=== PATIENT | female | born 1990 | race Two or more races ===

== ENCOUNTER 2016-09-23 08:10 | Inpatient (IN) | payer MEDICAID ==
[~2016-09-23] VITALS: Ht 167.6 cm; Wt 75.0 kg
[2016-09-23 08:21] VITALS: Ht 167.6 cm; Wt 75.0 kg
[2016-09-23 08:23] VITALS: RESP 19
--- NOTE | 2016-09-23 08:32 | TRIAGE ---
OB Triage Datetime Report Generated by CPN: 09/23/2016 08:31 Datetime: 09/23/2016 08:28 Maternal Assessment Level of Consciousness: Fully Conscious DTR's/Clonus: DTRs 1+ Headache: Denies Blurred Vision: No Breath Sounds, Left: Clear and Equal Breath Sounds, Right: Clear and Equal Nausea/Vomiting: Denies RUQ Epigastric Pain: Denies Facial Edema: None Labor Evaluation Frequency: 4 Monitor Mode: External Duration (sec)2399: 60-70 Quality: Mild Pattern: Normal: <= 5 Contractions in 10 Minutes Resting Tone [place]: Relaxed Heart Rate FHR Baseline Rate: 135 Monitor Mode: External US Variability: Moderate 6-25 bpm Accelerations: 15X15 Decelerations: None Category: Category I Pain Assessment Pain Scale: 10 Pain Presence: Intermittent Pain Type: Contraction Pain Location: Abdomen; Back Pain Goal: 3 Pain Relief Measures: Pain Medication Given Membrane Status: Intact Datetime: 09/23/2016 08:20 Assessment Type: Triage Maternal Assessment Level of Consciousness: Fully Conscious DTR's/Clonus: DTRs 2+; No Clonus Headache: Denies Blurred Vision: No Respiratory Effort: Unlabored; Regular Rhythm; Equal Expansion Breath Sounds, Left: Clear and Equal Breath Sounds, Right: Clear and Equal Nausea/Vomiting: Denies RUQ Epigastric Pain: Denies Lower Extremities Edema: None Degree: None Upper Extremities Edema: None Degree: None Facial Edema: None Fall Risk Assessment History of Falling: (0) No Secondary Diagnosis: (0) No Ambulatory Aid: (0) Bedrest/Nurse Assist IV Therapy: (0) No Gait: (0) Normal/Bedrest/Immobile Mental Status: (0) Oriented to Own Ability Fall Score: 0 Fall Risk Score Definition: No Risk: No action required Datetime: 09/23/2016 08:19 EGA: 39.6 Vaginal Exam Dilatation (cms): 1.5 Effacement (%): 90 Station: -1 Exam By: SUN CHÁVEZ Vaginal Bleeding: Normal Show Cervix, Consistency: Soft Cervix, Position: Midposition Presentation 'A': Cephalic Datetime: 09/23/2016 08:05 Time of Arrival: 09/23/2016 08:05 Arrived By: Wheelchair Arrived From: Home Chief Complaint: R/O LABOR AND SPOTTING Movement: Present Contractions: Denies/Absent Rupture of Membranes: Denies Vaginal Discharge: Denies Recent Sexual Intercouse: Denies Abdominal Trauma: Not Applicable Patient Complaints: Contractions Additional Patient Complaints: NONE Time Provider Notified: 09/23/2016 08:25 Provider Notified: VICKY Initial Plan: MONITOR AND VE
[2016-09-23] MEDS ORDERED: LIDOCAINE 1% (MPF) 30 ML INJ INJ PRN (09:00)
[2016-09-23] MEDS ORDERED: LACTATED RINGER'S 1,000 ML IV PRN (09:00)
[2016-09-23] MEDS ORDERED: OXYTOCIN 30 UNITS/LR 500 ML IV SCH ×3 (09:00→17:00)
[2016-09-23] MEDS ORDERED: AMPICILLIN 2 GM/NS (PMX) 100 ML IV ONE (09:00)
[2016-09-23] MEDS ORDERED: IBUPROFEN 600 MG TAB PO PRN (09:00)
[2016-09-23] MEDS ORDERED: CARBOPROST 250 MCG INJ IM PRN (09:00)
[2016-09-23] MEDS ORDERED: OXYTOCIN 30 UNITS/LR 500 ML IV PRN (09:00)
[2016-09-23] MEDS ORDERED: METHYLERGONOVINE 0.2 MG INJ IM PRN (09:00)
[2016-09-23] MEDS ORDERED: BUTORPHANOL 2 MG INJ IV PRN (09:00)
[2016-09-23] MEDS ORDERED: MISOPROSTOL 200 MCG TAB PR PRN (09:00)
[2016-09-23 09:04] LABS: ADD SCAN DIFF NO
[2016-09-23 09:06] LABS: BASOPHILS % 0.4 % (0.0-2.0); EOSINOPHILS # 0.1 10^3/ul (0.0-0.5); EOSINOPHILS % 1.3 % (0.0-7.0); HEMATOCRIT 35.5 % (37.0-47.0); HEMOGLOBIN 11.8 g/dl (12.0-16.0); LYMPHOCYTES # 1.5 10^3/ul (0.8-2.9); LYMPHOCYTES % 21.3 % (15.0-51.0); MEAN CORPUSCULAR HEMOGLOBIN 26.3 pg (29.0-33.0); MEAN CORPUSCULAR HGB CONC 33.2 g/dl (32.0-37.0); MEAN CORPUSCULAR VOLUME 79.1 fl (82.0-101.0); MEAN PLATELET VOLUME 13.4 fl (7.4-10.4); MONOCYTE # 0.5 10^3/ul (0.3-0.9); MONOCYTES % 6.9 % (0.0-11.0); NEUTROPHIL # 4.7 10^3/ul (1.6-7.5); NEUTROPHILS % 69.8 % (39.0-77.0); PLATELET COUNT 114 10^3/UL (140-415); RED BLOOD COUNT 4.49 10^6/ul (4.20-5.40); RED CELL DISTRIBUTION WIDTH 14.4 % (11.5-14.5); WHITE BLOOD COUNT 6.8 10^3/ul (4.8-10.8)
[2016-09-23 09:19] LABS: INR 0.94; PROTIME 12.6 Sec (12.2-14.2)
[2016-09-23 09:20] LABS: PARTIAL THROMBOPLASTIN TIME 25.8 Sec (25.0-35.0)
[2016-09-23] MEDS: LACTATED RINGER'S 1,000 ML IV SCH ×4 (09:31→21:19)
[2016-09-23] MEDS ORDERED: FENTAnyl 2MCG/ML-ROPIV 0.2% 100 ML ONE (09:32)
[2016-09-23] MEDS ORDERED: AMPICILLIN 1 GM/NS (PMX) 50 ML IV SCH (13:00)
[2016-09-23] MEDS ORDERED: NALOXONE (0.4 MG/ML) INJ IV PRN (15:30)
[2016-09-23] MEDS: FENTAnyl 2MCG/ML-ROPIV 0.2% 100 ML BAG EPI SCH ×2 (17:00→18:20)
--- NOTE | 2016-09-23 17:42 | HP ---
Date/Time of Note Date/Time of Note DATE: 09/23/16 TIME: 17:35 OB - History Hx of Present Chief Complaint: contractions Estimated Due Date: Sep 24, 2016 : 1 Para: 0 Spontaneous : 0 Therapeutic : 0 Care: Limited Care Ultrasounds: Normal mid trimester US Obstetrical Complications: None Medical Complications: None Past Family/Social History * Past Medical, Surgical, Family and Obstetric Histories reviewed from chart. GBS Status: Negative OB Admission Exam Vital Signs Vital Signs Vital Signs Date Time Temp Pulse Resp B/P Pulse Ox O2 Delivery O2 Flow Rate FiO2 09/23/16 08:23 98.4 19 99 Room Air Physical Exam HEENT: WNL Heart: Rhythm Normal Lungs: Clear Abdomen: WNL Extremities: Normal Cervical Dilatation: 2cm Effacement: 100% Station: -1 Heart Rate: 140's Accelerations: Accelerations Present Decelerations: No Decelerations Varibility: Moderate Last 72 hours Lab Results CBC & BMP 09/23/16 08:45 OB Assessment/Plan Reason for admission: active labor Plan: Expectant Management DINO PERRY MD Sep 23, 2016 17:42
[2016-09-24] MEDS: FENTAnyl 2MCG/ML-ROPIV 0.2% 100 ML BAG EPI SCH ×2 (01:42→09:06)
[2016-09-24] MEDS: LACTATED RINGER'S 1,000 ML IV SCH ×2 (05:06→09:49)
--- NOTE | 2016-09-24 14:19 | LDN ---
Date/Time of Note Date/Time of Note DATE: 09/24/16 TIME: 14:17 Delivery Summary Weeks of Gestation 40 weeks Placenta Delivered: Spontaneously Meconium: none Episiotomy: No Perineal laceration: 1 Laceration repair: First degree laceration repaired with 3-0 Vicryl Anesthesia type: Epidural Sponge & Needle done & correct: Yes All needle counts correct: Yes Any foreign bodies felt in the: No (Please specify) Problems: Delivery Information Sex Sex: female Apgars 1 Minute: 9 5 Minute: 9 Suctioning Nose & mouth suctioned at mazin: Yes Delee suction performed: No Umbilical Cord Umbilical cord with: 3 Vessels Cord presentations: no nuchal cord Cord Blood was obtained: Yes Mother & Baby Disposition Disposition Mom & Baby to Maternity; Good: Yes DINO PERRY MD Sep 24, 2016 14:19
[2016-09-24 15:30] VITALS: BP 116/70; PULSE 85; RESP 14
[2016-09-24] MEDS ORDERED: BENZOCAINE 20% 56 ML SPRAY TOP PRN (15:30)
[2016-09-24] MEDS ORDERED: METHYLERGONOVINE 0.2 MG INJ IM PRN (15:30)
[2016-09-24] MEDS ORDERED: OXYTOCIN 30 UNITS/LR 500 ML IV PRN (15:30)
[2016-09-24] MEDS ORDERED: MISOPROSTOL 200 MCG TAB PR PRN (15:30)
[2016-09-24] MEDS ORDERED: DIBUCAINE 1% 30 GM OINT PR PRN (15:30)
[2016-09-24] MEDS ORDERED: WITCH HAZEL/GLYCERIN PAD PR PRN (15:30)
[2016-09-24] MEDS ORDERED: ACETAMINOPHEN 325 MG TAB PO PRN (15:30)
[2016-09-24] MEDS ORDERED: CARBOPROST 250 MCG INJ IM PRN (15:30)
[2016-09-24] MEDS: ACETAMINOPHEN/CODEINE #3 TAB PO PRN (16:10)
[2016-09-24] MEDS: LACTATED RINGER'S 1,000 ML IV* SCH ×2 (18:14→23:28)
[2016-09-24] MEDS: IBUPROFEN 600 MG TAB PO SCH ×2 (18:17→23:54)
[2016-09-24 19:55] VITALS: BP 115/56; PULSE 96; RESP 18
[2016-09-24] MEDS: SENNA/DOCUSATE NA (8.6MG/50MG) TAB PO SCH (20:59)
[2016-09-25] VITALS: BP 107/63; PULSE 90; RESP 18
[2016-09-25 04:00] VITALS: BP 102/59; PULSE 80; RESP 18
[2016-09-25] MEDS: IBUPROFEN 600 MG TAB PO SCH ×3 (05:32→18:21)
[2016-09-25 08:15] VITALS: BP 113/63; PULSE 74; RESP 14
[2016-09-25 08:44] LABS: ADD SCAN DIFF NO
[2016-09-25 08:47] LABS: BASOPHILS % 0.2 % (0.0-2.0); EOSINOPHILS # 0.1 10^3/ul (0.0-0.5); EOSINOPHILS % 1.1 % (0.0-7.0); HEMATOCRIT 31.9 % (37.0-47.0); HEMOGLOBIN 10.4 g/dl (12.0-16.0); LYMPHOCYTES # 1.7 10^3/ul (0.8-2.9); LYMPHOCYTES % 13.6 % (15.0-51.0); MEAN CORPUSCULAR HEMOGLOBIN 26.1 pg (29.0-33.0); MEAN CORPUSCULAR HGB CONC 32.6 g/dl (32.0-37.0); MEAN CORPUSCULAR VOLUME 79.9 fl (82.0-101.0); MEAN PLATELET VOLUME 13.8 fl (7.4-10.4); MONOCYTE # 1.1 10^3/ul (0.3-0.9); NEUTROPHIL # 9.3 10^3/ul (1.6-7.5); NEUTROPHILS % 75.8 % (39.0-77.0); PLATELET COUNT 111 10^3/UL (140-415); RED BLOOD COUNT 3.99 10^6/ul (4.20-5.40); RED CELL DISTRIBUTION WIDTH 14.5 % (11.5-14.5); WHITE BLOOD COUNT 12.3 10^3/ul (4.8-10.8)
[2016-09-25] MEDS: SENNA/DOCUSATE NA (8.6MG/50MG) TAB PO SCH ×2 (08:56→21:46)
[2016-09-25] MEDS: ACETAMINOPHEN/CODEINE #3 TAB PO PRN (16:22)
[2016-09-25 16:41] VITALS: BP 117/80; PULSE 70; RESP 16
[2016-09-25 19:45] VITALS: BP 117/75; PULSE 85; RESP 17
[2016-09-25] MEDS: LACTATED RINGER'S 1,000 ML IV* SCH ×2 (21:29→21:30)
[2016-09-26] MEDS: IBUPROFEN 600 MG TAB PO SCH ×4 (00:22→18:20)
[2016-09-26 04:00] VITALS: BP 124/72; PULSE 73; RESP 20
[2016-09-26 08:00] VITALS: BP 133/84; RESP 20
[2016-09-26] MEDS ORDERED: DIPHTH/TET/ACEL PERTUSS (ADULT) 0.5 ML VIAL IM* ONE (09:00)
[2016-09-26] MEDS: SENNA/DOCUSATE NA (8.6MG/50MG) TAB PO SCH ×2 (09:28→21:15)
[2016-09-26] MEDS: ACETAMINOPHEN/CODEINE #3 TAB PO PRN (13:38)
[2016-09-26 16:00] VITALS: BP 130/82; PULSE 80; RESP 18
--- NOTE | 2016-09-26 19:20 | DS ---
Date/Time of Note Date/Time of Note DATE: 09/26/16 TIME: 19:19 Obstetrical Discharge Record Final Diagnosis Final Diagnosis: Term delivered Vaginal Delivery Obstetrical Delivery: Spontaneous, Laceration, Repaired Condition on Discharge Physical Assessment Voiding: Yes Bowel Movement: Yes Breast: Soft, non-tender Fundus: Firm Calf Tenderness: No Patient Condition: Stable DINO PERRY MD Sep 26, 2016 19:20
[2016-09-26 20:30] VITALS: BP 118/75; PULSE 80; RESP 17
[2016-09-27] MEDS: IBUPROFEN 600 MG TAB PO SCH ×3 (01:02→12:12)
[2016-09-27 04:00] VITALS: BP 121/62; PULSE 78; RESP 20
[2016-09-27 08:00] VITALS: BP 124/73; PULSE 70; RESP 20
[2016-09-27] MEDS: SENNA/DOCUSATE NA (8.6MG/50MG) TAB PO SCH (10:29)
== END 2016-09-27 13:00 | disposition home or self-care (01) | DRG 775 ==
LOC: OBT 08:10 → L-D 08:17 → OBT 08:25 → PP1 09-24 15:33
PROVIDERS: ADMIT Obstetrics & Gynecology; ATTEND Obstetrics & Gynecology
PROC: 10E0XZZ Delivery of Products of Conception, External Approach (ICD-10-PCS; principal; 2016-09-24)
PROC: 0HQ9XZZ Repair Perineum Skin, External Approach (ICD-10-PCS; 2016-09-24)
DX: O70.0 First degree perineal laceration during delivery (principal); O48.0 Post-term pregnancy; Z3A.40 40 weeks gestation of pregnancy; Z37.0 Single live birth
CPT/HCPCS: 62319; 85025; 85610; 85730; 86592; 86900; 86901; 90715; G0463; J0290; J2590; J3010; J7120

== ENCOUNTER 2018-05-26 11:22 | Emergency (ER) | END 2018-05-26 15:26 | disposition home or self-care (01) ==

== ENCOUNTER 2018-05-30 14:47 | Inpatient (IN) | END 2018-06-01 18:15 | disposition home or self-care (01) | DRG 833 ==

== ENCOUNTER 2018-12-05 01:30 | Inpatient (IN) | payer MEDICAID ==
[~2018-12-05] VITALS: Ht 167.6 cm; Wt 80.8 kg
[~2018-12-05 01:30] MED LIST: DOXY1TAB3 PO; DOXY25TA33 PO; METO10TA92 PO; PYRI25TA4 PO
--- NOTE | 2018-12-05 02:07 | TRIAGE ---
OB Triage Datetime Report Generated by CPN: 12/05/2018 02:06 Datetime: 12/05/2018 02:03 Time of Arrival: 12/05/2018 01:28 EGA: 39.4 Arrived By: Wheelchair Arrived From: Home Chief Complaint: c/o ucs Movement: Present Contractions: Regular Time Contractions Began: 12/04/2018 18:00 Contractions: q5 Rupture of Membranes: Denies Vaginal Bleeding: Scant Vaginal Discharge: Present Recent Sexual Intercouse: Denies Abdominal Trauma: Not Applicable Patient Complaints: Contractions Time Provider Notified: 12/05/2018 01:51 Provider Notified: Dr Claros Initial Plan: EFM,SVE Datetime: 12/05/2018 01:39 Stage of : OB Triage Maternal Assessment Level of Consciousness: Keenly Alert, Responsive Headache: Denies Blurred Vision: No Nausea/Vomiting: Denies RUQ Epigastric Pain: Denies Facial Edema: None Labor Evaluation Monitor Mode: External Resting Tone [place]: Relaxed Heart Rate FHR Baseline Rate: 130 Monitor Mode: External US Pain Assessment Pain Scale: 10 Pain Presence: Intermittent Pain Type: Contraction Pain Location: Abdomen Vaginal Exam Dilatation (cms): 4.0 Effacement (%): 80 Station: -2 Exam By: Star Reynolds Membrane Status: Intact Amniotic Fluid Amount: None Amniotic Fluid Odor: None Vaginal Bleeding: Scant Cervix, Consistency: Soft Cervix, Position: Posterior Presentation 'A': Cephalic
[2018-12-05 02:23] VITALS: BP 118/68; PULSE 73; RESP 20
[2018-12-05] MEDS ORDERED: PREN-19 PO (02:25)
[2018-12-05] MEDS ORDERED: FERR134T PO (02:25)
[2018-12-05] MEDS ORDERED: CARBOPROST 250 MCG INJ IM PRN ×2 (02:30→09:30)
[2018-12-05] MEDS ORDERED: BUTORPHANOL 2 MG INJ IV PRN ×2 (02:30)
[2018-12-05] MEDS ORDERED: OXYTOCIN 30 UNITS/LR 500 ML IV SCH ×2 (02:30)
[2018-12-05] MEDS ORDERED: IBUPROFEN 600 MG TAB PO PRN (02:30)
[2018-12-05] MEDS ORDERED: METHYLERGONOVINE 0.2 MG INJ IM PRN ×2 (02:30→09:30)
[2018-12-05] MEDS ORDERED: MISOPROSTOL 200 MCG TAB PR PRN ×2 (02:30→09:30)
[2018-12-05] MEDS ORDERED: OXYTOCIN 30 UNITS/LR 500 ML IV PRN ×2 (02:30→09:30)
[2018-12-05] MEDS ORDERED: MINERAL OIL LIGHT 10 ML VIAL TOP ONE (02:30)
[2018-12-05] MEDS ORDERED: LIDOCAINE 1% (MPF) 30 ML INJ INJ PRN (02:30)
[2018-12-05] MEDS: LACTATED RINGER'S 1,000 ML IV SCH ×2 (02:35→05:03)
[2018-12-05] MEDS ORDERED: FENTAnyl 2MCG/ML-ROPIV 0.2% 100 ML ONE (03:12)
--- NOTE | 2018-12-05 03:24 | PREAC ---
Date/Time of Note Date/Time of Note DATE: 12/05/18 TIME: 03:23 Anesthesia Eval and Record Evaluation Time Pre-Procedure Interview DATE: 12/05/18 TIME: 03:23 Age 28 Sex female NPO: 8 hrs Preoperative diagnosis Labor Pain Planned procedure Labor Epidural Past Medical History Past Medical History: Includes Heme: Anemia : : (2), Para: (1), Gestational age: (38) Surgery & Anesthesia Issues No known issue Meds Anticoagulation: No Beta Genaro within 24 hr: No Reason Beta Genaro not given: Pt. not on B-Genaro Reported Medications Vit #76/Iron,Carb/FA (Prenatabs Rx Tablet) 1 Each Tablet, 1 EACH PO DAILY, TAB 12/05/18 Ferrous Sulfate (Iron) 134 Mg Tablet, 134 MG PO DAILY, TAB 12/05/18 Discontinued Reported Medications Doxylamine/Pyridoxine Hcl (DICLEGIS DR 10-10 MG TABLET) 1 Each Tablet.dr, 2 TAB PO QHS, TAB 05/30/18 Discontinued Scripts Pyridoxine Hcl* (Pyridoxine Hcl*) 25 Mg Tablet, 25 MG PO QHS PRN for NAUSEA, #30 TAB Prov:MAYKEL JORDAN MD 06/06/18 Doxylamine Succinate* (Unisom Sleep Aid*) 25 Mg Tablet, 25 MG PO HS PRN for NAUSEA, #30 TAB Prov:MAYKEL JORDAN MD 06/06/18 Metoclopramide* (Reglan*) 10 Mg Tablet, 10 MG PO Q6 PRN for NAUSEA AND/OR VOMITING, #20 TAB Prov:LUCILA NUEÑZ MD 05/26/18 Current Medications Lactated Ringer's 1,000 ml @ 125 mls/hr Q8H IV Last administered on 12/05/18at 02:35; Admin Dose 125 MLS/HR; Start 12/05/18 at 02:19 Butorphanol Tartrate (Stadol) 1 mg Q2H PRN IV .PAIN SCALE 1-5; Start 12/05/18 at 02:30 Butorphanol Tartrate (Stadol) 2 mg Q2H PRN IV .PAIN SCALE 6-10; Start 12/05/18 at 02:30 Lidocaine (Xylocaine 1% (Mpf)) 30 ml ONCE PRN INJ .EPISIOTOMY; Start 12/05/18 at 02:30 Oxytocin/Lactated Ringer's 500 ml @ 500 mls/hr ONCE POST IV ; Start 12/05/18 at 02:30 Oxytocin/Lactated Ringer's 500 ml @ 125 mls/hr POST IV ; Start 12/05/18 at 02:30 Ibuprofen (Motrin) 600 mg ONCE PRN PO .PAIN 1-5; Start 12/05/18 at 02:30 Lactated Ringer's 1,000 ml @ 2,000 mls/hr Q30M PRN IV .ANESTHESIA; Start 12/05/18 at 02:19 Oxytocin/Lactated Ringer's 500 ml @ 0 mls/hr ONCE PRN IV .VAGINAL BLEEDING; Start 12/05/18 at 02:30 Methylergonovine Maleate (Methergine) 0.2 mg ONCE PRN IM .VAGINAL BLEEDING; Start 12/05/18 at 02:30 Carboprost Tromethamine (Hemabate) 250 mcg ONCE PRN IM .VAGINAL BLEEDING; Start 12/05/18 at 02:30 Misoprostol (Cytotec) 1,000 mcg ONCE PRN MO .VAGINAL BLEEDING; Start 12/05/18 at 02:30 Meds reviewed: Yes Allergies Coded Allergies: No Known Drug Allergy (Verified Allergy, Unknown, 12/05/18) Allergies Reviewed: Yes Labs/Studies Labs Reviewed: Reviewed by anesthesiologist Result Diagram: 12/05/18 0230 Laboratory Tests 12/05/18 02:30 Blood Bank Test 12/05/18 02:30 Antibody Screen NEGATIVE Blood Type B POSITIVE Rh Immune Globulin Candidate NO test: Positive Studies: ECG (n/a), CXR (n/a) Pre-procedure Exam Last vitals Vital Signs Date Temp Pulse Resp B/P (MAP) Pulse Ox O2 O2 Flow FiO2 Time Delivery Rate 12/05/18 98.0 73 20 118/68 Room Air 02:23 (85) Airway: Adequate mouth opening, Adequate thyromental dist Mallampati: Mallampati II Teeth: Normal Lung: Normal Heart: Normal ASA Physical Status ASA physical status: 2 Emergency: None Planned Anesthetic Neuraxial: Epidural Planned Pain Management Epidural Pre-operative Attestations Prior to commencing anesthesia and surgery, the patient was re-evaluated, there was verification of: *The patient's identity *The results of appropriate recent lab work and preoperative vital signs *The above evaluation not changing prior to induction *Anesthetic plan, risk benefits, alternative and complications discussed with patient/family; questions answered; patient/family understands, accepts and wishes to proceed. CHRISTIANA FREDERICK MD Dec 05, 2018 03:24
--- NOTE | 2018-12-05 03:25 | PAC ---
Date/Time of Note Date/Time of Note DATE: 12/05/18 TIME: 03:25 Post-Anesthesia Notes Post-Anesthesia Note Last documented vital signs Vital Signs Date Temp Pulse Resp B/P (MAP) Pulse Ox O2 O2 Flow FiO2 Time Delivery Rate 12/05/18 98.0 73 20 118/68 100 Room Air 03:23 (85) Activity: WNL Respiratory function: WNL Cardiovascular function: WNL Mental status: Baseline Pain reasonably controlled: Yes Hydration appropriate: Yes Nausea/Vomiting absent: Yes CHRISTIANA FREDERICK MD Dec 05, 2018 03:25
[2018-12-05] MEDS ORDERED: NALOXONE (0.4 MG/ML) INJ IV PRN (03:30)
[2018-12-05] MEDS ORDERED: FENTAnyl 2MCG/ML-ROPIV 0.2% 100 ML BAG EPI SCH (03:30)
[2018-12-05] MEDS: LACTATED RINGER'S 1,000 ML IV PRN (05:02)
--- NOTE | 2018-12-05 07:02 | HP ---
Date/Time of Note Date/Time of Note DATE: 12/05/18 TIME: 06:47 OB - History Hx of Present Free Text/Dictation 28 y.o at 39w4d with c/o uc's q3min , intact membrane. VE 4/80/-2 Initially CAT I tracing record is confusing ,not much info obtained, except lab result. GBS status neg admitted for expectant management. Chief Complaint: UC's Estimated Due Date: Dec 08, 2018 : 2 Para: 1 Spontaneous : 0 Therapeutic : 0 Care: Limited Care Ultrasounds: Other Obstetrical Complications: None Medical Complications: None Past Family/Social History * Past Medical, Surgical, Family and Obstetric Histories reviewed from chart. Blood Type: B+ Rubella: immune RPR/VDRL: Negative GBS Status: Negative HBsAG: Negative OB Admission Exam Vital Signs Vital Signs Vital Signs Date Temp Pulse Resp B/P (MAP) Pulse Ox O2 O2 Flow FiO2 Time Delivery Rate 12/05/18 98.0 73 20 118/68 Room Air 02:23 (85) Physical Exam HEENT: WNL Heart: Rhythm Normal Lungs: Clear, Equal Abdomen: WNL Extremities: Normal Reflexes: Normal Cervical Dilatation: 4cm Effacement: 75% Station: -2 Membranes: Intact Amniotic Fluid: Unevaluable Heart Rate: 140's Accelerations: Accelerations Present Decelerations: No Decelerations Varibility: Moderate Contractions on Admission: < 5 Minutes Apart Intensity: Moderate Last 72 hours Lab Results CBC & BMP 12/05/18 02:30 OB Assessment/Plan Reason for admission: active labor Other Assessment: IUP 39w4d Plan: Expectant Management CLEMENT MCMANUS MD Dec 05, 2018 07:00
--- NOTE | 2018-12-05 07:05 | LDN ---
Date/Time of Note Date/Time of Note DATE: 12/05/18 TIME: 07:03 Delivery Summary of normal male with tight nuchal cord Weeks of Gestation 39w4d Placenta Delivered: Spontaneously, Intact & Complete Meconium: none Episiotomy: No Perineal laceration: 0 Anesthesia type: Epidural Estimated blood loss: 100 Sponge & Needle done & correct: Yes All needle counts correct: Yes Any foreign bodies felt in the: No Infant Delivery Information Sex Sex: male Apgars 1 Minute: 8 5 Minute: 9 Suctioning Nose & mouth suctioned at mazin: Yes Delee suction performed: Yes Umbilical Cord Umbilical cord with: 3 Vessels Cord presentations: nuchal cord Nuchal cord present X: 1 Cord Blood was obtained: Yes Mother & Baby Disposition Disposition Mom & Baby to Maternity; Good: Yes Mom transferred to: Other Baby to NICU: No () CLEMENT MCMANUS MD Dec 05, 2018 07:05
[2018-12-05 08:40] VITALS: BP 123/75; PULSE 74; RESP 18
[2018-12-05] MEDS ORDERED: ZOLPIDEM 5 MG TAB PO PRN (09:30)
[2018-12-05] MEDS ORDERED: BENZOCAINE 20% 56 ML SPRAY TOP PRN (09:30)
[2018-12-05] MEDS ORDERED: LANOLIN HPA 1 PKT TOP PRN (09:30)
[2018-12-05] MEDS ORDERED: WITCH HAZEL/GLYCERIN PAD PR PRN (09:30)
[2018-12-05] MEDS ORDERED: OXYCODONE/ASPIRIN (4.88/325) TAB PO PRN ×2 (09:30)
[2018-12-05 12:00] VITALS: BP 120/80; PULSE 80; RESP 18
[2018-12-05] MEDS: IBUPROFEN 600 MG TAB PO SCH ×3 (12:25→23:38)
[2018-12-05 15:45] VITALS: BP 109/51; PULSE 81; RESP 20
[2018-12-05 20:15] VITALS: BP 130/60; PULSE 70; RESP 20
[2018-12-05] MEDS: SENNA/DOCUSATE NA (8.6MG/50MG) TAB PO SCH (21:09)
[2018-12-06 00:05] VITALS: BP 106/59; PULSE 76; RESP 18
[2018-12-06 04:05] VITALS: BP 111/66; PULSE 66; RESP 18
[2018-12-06] MEDS: IBUPROFEN 600 MG TAB PO SCH ×3 (06:37→17:44)
[2018-12-06 08:00] VITALS: BP 113/59; PULSE 67; RESP 18
[2018-12-06] MEDS: SENNA/DOCUSATE NA (8.6MG/50MG) TAB PO SCH ×2 (08:49→20:59)
[2018-12-06 15:51] VITALS: BP 122/69; PULSE 82; RESP 18
--- NOTE | 2018-12-06 16:40 | QN ---
Documentation Comment No complaint Afebrile VSS Fundus firm Lochia scant PPD #1 Stable Continue present care. DINO PERRY MD Dec 06, 2018 16:40
--- NOTE | 2018-12-06 17:39 | DS ---
Date/Time of Note Date/Time of Note DATE: 12/06/18 TIME: 17:39 Obstetrical Discharge Record Final Diagnosis Final Diagnosis: Term delivered Vaginal Delivery Obstetrical Delivery: Spontaneous Condition on Discharge Physical Assessment Voiding: Yes Bowel Movement: Yes Breast: Soft, non-tender, Filling Fundus: Firm Calf Tenderness: No Patient Condition: Stable DINO PERRY MD Dec 06, 2018 17:39
[2018-12-06 20:45] VITALS: BP 111/64; PULSE 76; RESP 19
[2018-12-07] MEDS: IBUPROFEN 600 MG TAB PO SCH ×3 (00:27→12:58)
[2018-12-07 03:55] VITALS: BP 105/58; PULSE 82; RESP 19
[2018-12-07 09:00] VITALS: BP 117/64; PULSE 86; RESP 18
[2018-12-07] MEDS ORDERED: DIPHTH/TET/ACEL PERTUSS (ADULT) 0.5 ML VIAL IM* ONE (09:00)
[2018-12-07] MEDS: SENNA/DOCUSATE NA (8.6MG/50MG) TAB PO SCH (10:05)
--- NOTE | 2018-12-08 13:57 | DELSUM ---
Delivery Summary A-C Datetime Report Generated by CPN: 12/08/2018 13:57 DELIVERY PERSONNEL Reptile Keeper: Casas, Mame MATERNAL INFORMATION Delivery Anesthesia: Epidural Medications in Delivery: 30 UNITS PITOCIN Delivery QBL (ml): 100 Placenta Cultured: No Maternal Complications: None LABOR SUMMARY EDC: 12/08/2018 00:00 No. Babies in Womb: 1 Attempted: No Labor Anesthesia: Epidural LABOR INFORMATION Reason for Induction: Not Applicable Onset of Labor: 12/04/2018 18:00 Complete Dilatation: 12/05/2018 05:53 Oxytocin: N/A Group B Beta Strep: Negative Antibiotics # of Doses: 0 Steroids Given: None Reason Steroids Not Administered: Not Applicable MEMBRANES Membranes Rupture Method: Spontaneous Rupture of Membranes: 12/05/2018 02:53 Length of Rupture (hr): 3.30 Amniotic Fluid Color: Clear Amniotic Fluid Amount: Moderate Amniotic Fluid Odor: None STAGES OF LABOR Stage 1 hr: 11 Stage 1 min: 53 Stage 2 hr: 0 Stage 2 min: 18 Stage 3 hr: 0 Stage 3 min: 3 Total Time in Labor hr: 12 Total Time in Labor min: 14 VAGINAL DELIVERY Episiotomy: None Laceration Extension: N/A Laceration Type: None Initial Vag Sponge Count: 10 Final Vag Sponge Count: 10 Initial Vag Sharps Count: 2 Final Vag Sharps Count: 2 Sponge Count Correct: Yes; Vaginal Sweep Performed Sharps Count Correct: Yes BABY A INFORMATION Infant Delivery Date/Time: 12/05/2018 06:11 Method of Delivery: Vaginal Born in Route : No : N/A Forceps: N/A Vacuum Extraction: N/A Shoulder Dystocia : N/A SHOULDER DYSTOCIA BABY A Delivery Date/Time: 12/05/2018 06:11 PRESENTATION/POSITION BABY A Presentation: Cephalic Cephalic Presentation: Vertex Breech Presentation: N/A PLACENTA INFORMATION BABY A Placenta Delivery Time : 12/05/2018 06:14 Placenta Method of Delivery: Expressed Placenta Status: Delivered SCORES BABY A Heart Rate 1 min: >100 bpm Resp Effort 1 min: Good Cry Reflex Irritability 1 min: Cough/Sneeze/Pulls Away Muscle Tone 1 min: Active Motion Color 1 min: Blue/Pale Resuscitation Effort 1 min: Tactile Stimulation SCORE 1 MIN: 8 Heart Rate 5 min: >100 bpm Resp Effort 5 min: Good Cry Reflex Irritability 5 min: Cough/Sneeze/Pulls Away Muscle Tone 5 min: Active Motion Color 5 min: Body [place], Extremit Blue Resuscitation Effort 5 min: Tactile Stimulation SCORE 5 MIN: 9 INFORMATION BABY A Gestational Age at Delivery: 39.4 Gestational Status: Full Term- 39- 40.6 Weeks Outcome : Liveborn Condition : Stable Infant Sex: Male IDENTIFICATION/MEDS BABY A ID Band Number: [id number] ID Band Location: Right Leg; Left Arm Sensor Number: [id number] Sensor Location : Cord Clamp Vitamin K Given : Not Given Erythromycin Given: Not Given WEIGHT/LENGTH BABY A Infant Birthweight (gm): 3330 Weight (lb): 7 Infant Weight (oz): 5 Length (in): 19.50 Length (cm): 49.53 CORD INFORMATION BABY A No. Cord Vessels: 3 Nuchal Cord : Around Neck x1, Tight Cord Blood Taken: Yes Suction: Mouth; Nose ASSESSMENT BABY A Complications: Multiple Late Decels; Multiple Variable Decels Physical Findings at Delivery: Within Normal Limits Respirations: Appears Normal Header Set Up Operator/ALS Called : No Infant Care By: DAISY Transferred To: Remains with Mother
== END 2018-12-07 13:45 | disposition home or self-care (01) | DRG 807 ==
LOC: L-D 01:30 → OBT 01:30 → L-D 01:50 → PP1 08:25
PROVIDERS: ADMIT Obstetrics & Gynecology; ATTEND Obstetrics & Gynecology
PROC: 10E0XZZ Delivery of Products of Conception, External Approach (ICD-10-PCS; principal; 2018-12-05)
DX: O69.1XX0 Labor and delivery complicated by cord around neck, with compression, not applicable or unspecified (principal); Z37.0 Single live birth; Z3A.39 39 weeks gestation of pregnancy; Z23 Encounter for immunization
CPT/HCPCS: 62322; 85025; 85610; 85730; 86592; 86850; 86900; 86901; 87340; 90715; 99464; G0463; J2590; J3010; J7120